=== PATIENT | male | born 1970 | race African-American/Black ===

== ENCOUNTER 2018-02-16 12:56 | Emergency (ER) | payer MEDICAID, OTHER ==
[~2018-02-16] VITALS: Ht 185.4 cm; Wt 122.5 kg
[2018-02-16] MEDS ORDERED: METHOCARBAMOL 500 MG TAB PO ONE (14:45)
[2018-02-16] MEDS ORDERED: KETOROLAC TROMETH 60MG/2ML VIAL IM ONE (14:45)
[2018-02-16 16:43] VITALS: BP 144/88
== END 2018-02-16 16:55 | disposition home or self-care (01) ==
LOC: ER 13:01
DX: G89.29 Other chronic pain (principal); M54.9 Dorsalgia, unspecified
CPT/HCPCS: 72110; 96372; 99284; J1885

== ENCOUNTER 2019-01-04 09:46 | Emergency (ER) | payer MEDICAID ==
[~2019-01-04] VITALS: Ht 185.4 cm; Wt 117.9 kg
[2019-01-04 10:21] VITALS: BP 152/91
[2019-01-04 10:59] LABS: Urine Bacteria NONE SEEN /hpf (None Seen); Urine Blood Negative /uL (Negative); Urine Specific Gravity 1.025 (1.001-1.035); Urine WBC <1 /hpf (0 - 3)
[2019-01-04] MEDS ORDERED: KETOROLAC TROMETH 60MG/2ML VIAL IM ONE (12:00)
[2019-01-04] MEDS ORDERED: METHOCARBAMOL 500 MG TAB PO ONE (12:00)
== END 2019-01-04 12:03 | disposition home or self-care (01) ==
LOC: ER 09:46
DX: G89.29 Other chronic pain (principal); M54.6 Pain in thoracic spine; X50.1XXA Overexertion from prolonged static or awkward postures, initial encounter; Y93.89 Activity, other specified; Y92.89 Other specified places as the place of occurrence of the external cause; Y99.8 Other external cause status
CPT/HCPCS: 72070; 72100; 81001; 96372; 99284; J1885

== ENCOUNTER 2021-07-25 20:44 | Emergency (ER) | payer MEDICAID ==
[~2021-07-25] VITALS: Ht 185.4 cm; Wt 136.1 kg
[2021-07-25 20:44] VITALS: BP 156/108
== END 2021-07-26 00:54 | disposition left against medical advice (07) ==
LOC: ER 20:44
DX: K08.89 Other specified disorders of teeth and supporting structures (principal); Z53.21 Procedure and treatment not carried out due to patient leaving prior to being seen by health care provider